=== PATIENT | female | born 1970 | race Asian ===

== ENCOUNTER 2020-08-16 09:57 | Emergency (ER) | payer OTHER ==
[~2020-08-16] VITALS: Ht 157.5 cm; Wt 68.0 kg
[2020-08-16 10:06] VITALS: BP 175/99
== END 2020-08-16 12:02 | disposition left against medical advice (07) ==
LOC: ER 09:57
DX: M25.561 Pain in right knee (principal); Z53.21 Procedure and treatment not carried out due to patient leaving prior to being seen by health care provider